=== PATIENT | female | born 1945 | race Caucasian/White ===

== ENCOUNTER 2021-04-05 18:20 | Emergency (ER) | payer MEDICARE, OTHER ==
[2021-04-05 19:40] LABS: BASOPHIL 0.2 % (0-2); EOSINOPHIL 0 % (0-7); HCT 40.9 % (37.0-47.0); LYMPHOCYTE 13.6 % (15-48); MCH 30.7 pg (25.0-31.0); MCHC 34.2 g/dL (32.0-36.0); MCV 89.7 fL (78.0-100.0); MONOCYTE 5.5 % (0-12); NEUTROPHIL 80.2 % (41-80); NRBC 0; PLT 165 K/uL (150-400); RBC 4.56 M/uL (4.20-5.40); RDW 12.4 % (11.5-14.0); WBC 6.5 K/uL (4.0-10.5)
[2021-04-05 19:54] LABS: BILIRUBIN - TOTAL 0.7 mg/dL (0.2-1.0); CREATININE 0.5 mg/dL (0.51-0.95); GLOBULIN (CALCULATION) 3.5 g/dL; POTASSIUM 5.4 mmol/L (3.5-5.1); TOTAL PROTEIN 7.5 g/dL (6.4-8.2)
[2021-04-05 20:03] LABS: LACTIC ACID 2.3 mmol/L (0.4-1.9)
[2021-04-05 20:12] LABS: BILIRUBIN NEGATIVE (NEGATIVE); BLOOD NEGATIVE Ery/uL (NEGATIVE); CLARITY CLEAR (CLEAR); COLOR YELLOW (YELLOW); GLUCOSE (U) NORMAL (NORMAL); LEUKOCYTES TRACE Leu/uL (NEGATIVE); NITRITE NEGATIVE (NEGATIVE); PROTEIN TRACE (LOW) mg/dL (NEGATIVE); SPECIFIC GRAVITY >=1.030 (1.001-1.030); UROBILINOGEN 0.2 mg/dL (0.2-1.0); pH 5.5 (5.0-9.0)
[2021-04-05 20:47] LABS: AMORPHOUS URATES CRYSTALS TRACE; BACTERIA TRACE; GRANULAR CASTS TRACE; URINARY RBC RARE
[2021-04-05] MEDS ORDERED: DUONEB 2.5-0.5M1 AMP INH (21:26)
[2021-04-05] MEDS ORDERED: PULMICORT1 MG/2 ML PO (21:26)
[2021-04-05] MEDS ORDERED: NEBULIZER UNIT NEB (21:26)
[2021-04-05] MEDS ORDERED: ZPAK PO (21:26)
== END 2021-04-05 22:25 | disposition home or self-care (01) ==
LOC: FER 18:20
PROVIDERS: Emergency Medicine Emergency Medical Services
DX: U07.1 COVID-19 (principal); J44.9 Chronic obstructive pulmonary disease, unspecified; I25.2 Old myocardial infarction; I10 Essential (primary) hypertension; F17.200 Nicotine dependence, unspecified, uncomplicated; Z95.5 Presence of coronary angioplasty implant and graft; Z88.1 Allergy status to other antibiotic agents
CPT/HCPCS: 36415; 36600; 71045; 80053; 81001; 82803; 83605; 83880; 84145; 84484; 85025; 85379; 87040; 87076; 87088; 87186; 93005; 94640; 94664; J0696; J2930; U0002